=== PATIENT | male | born 1975 | race Hispanic/Latino ===

== ENCOUNTER 2025-03-18 10:00 | Emergency (ER) | payer BC ==
[~2025-03-18] VITALS: Ht 167.6 cm; Wt 77.1 kg
[2025-03-18 10:11] VITALS: PULSE 55; RESP 17; TEMP 99
[2025-03-18 11:47] VITALS: BP 137/67; PULSE 88; RESP 17; TEMP 98.7; O2SAT 100
== END 2025-03-18 11:49 | disposition home or self-care (01) ==
LOC: FSED 10:26
DX: S92.532A Displaced fracture of distal phalanx of left lesser toe(s), initial encounter for closed fracture (principal); W55.12XA Struck by horse, initial encounter; Y92.89 Other specified places as the place of occurrence of the external cause; E11.9 Type 2 diabetes mellitus without complications
CPT/HCPCS: 99282